=== PATIENT | female | born 1960 | race Caucasian/White ===

== ENCOUNTER 2023-04-09 18:26 | Emergency (ER) | payer SELFPAY ==
[~2023-04-09] VITALS: Ht 156.2 cm; Wt 75.7 kg
[2023-04-09 18:34] VITALS: BP 135/70; PULSE 100; RESP 18; TEMP 98.9; O2SAT 97
[2023-04-09 20:19] LABS: BASOPHILS % (AUTO) 0.6 % (0.0-2.0); EOSINOPHILS % (AUTO) 0.2 % (0.0-4.0); HEMATOCRIT 38.6 % (36-48); LYMPHOCYTES # (AUTO) 1.3 K/uL (2.5-16.5); LYMPHOCYTES % (AUTO) 14.5 % (20.5-51.1); MEAN CORPUSCULAR HEMOGLOBIN 30 pg (27-31); MEAN CORPUSCULAR HGB CONC 34 g/dL (33-37); MEAN CORPUSCULAR VOLUME 87.6 fL (80-94); MONOCYTES # (AUTO) 0.5 K/uL (0.8-1.0); MONOCYTES % (AUTO) 5.6 % (1.7-9.3); NEUTROPHILS # (AUTO) 6.9 K/uL (1.8-7.7); NEUTROPHILS % (AUTO) 79.1 % (42.2-75.2); PLATELET COUNT (AUTO) 288 K/uL (140-450); RED BLOOD CELL COUNT(AUTO) 4.41 MIL/uL (4.20-5.40); WHITE BLOOD COUNT (AUTO) 8.7 K/uL (4.8-10.8)
[2023-04-09 20:37] LABS: ALBUMIN 4.1 g/dL (3.4-5.0); ANION GAP 11.4 (8-16); CALCIUM 8.7 mg/dL (8.5-10.1); CARBON DIOXIDE 28.6 mmol/L (21-32); CREATININE 0.7 mg/dL (0.6-1.3); TOTAL BILIRUBIN 0.3 mg/dL (0.0-1.0); TOTAL PROTEIN, SERUM 7.6 g/dL (6.4-8.2)
[2023-04-09 20:57] VITALS: BP 132/73; PULSE 77; RESP 18
[2023-04-09 20:59] LABS: INR 0.98 (0.8-1.2); PROTHROMBIN TIME 10.3 secs (10.8-13.4)
[2023-04-09 21:04] VITALS: O2SAT 100
[2023-04-09 21:09] LABS: D-DIMER < 100 ng/ml (0-400)
[2023-04-09 23:07] VITALS: O2SAT 100
== END 2023-04-10 00:04 | disposition home or self-care (01) ==
LOC: MED 18:26
DX: R06.02 Shortness of breath (principal); F41.9 Anxiety disorder, unspecified; Z20.822 Contact with and (suspected) exposure to COVID-19; I10 Essential (primary) hypertension; E03.9 Hypothyroidism, unspecified; Z98.890 Other specified postprocedural states
CPT/HCPCS: 36415; 71045; 80053; 83880; 84484; 85025; 85379; 85610; 85730; 87426; 93005; 99285; Q0092